=== PATIENT | female | born 1985 | race American Indian/Alaskan Native ===

== ENCOUNTER 2020-09-28 | Emergency (ER) | payer SELFPAY ==
[2020-09-28 02:57] LABS: Bacteria,Urine 2+ /HPF (Negative); Bilirubin,Urine NEG (Negative); Blood,Urine NEG (Negative); Color,Urine Yellow (Yellow); Mucus,Urine 2+ /HPF; Protein,Urine <15 mg/dL mg/dL (Negative)
[2020-09-28 02:59] LABS: HCG Qualitative,Urine Negative (Negative)
[2020-09-28] MEDS ORDERED: KETOROLAC 30 MG/1 ML INJ IM ONE (03:44)
--- NOTE | 2020-09-28 04:39 | Emergency Department Report ---
ED General Adult HPI - General Chief complaint: Abdominal Pain Stated complaint: LOWER BACK/ABD PAIN Time Seen by Provider: 09/28/20 03:43 Source: patient Mode of arrival: Ambulatory Limitations: No Limitations - History of Present Illness Initial comments: The patient was evaluated in the emergency department for symptoms described in the history of present illness. He/she was evaluated in the context of the global COVID-19 pandemic, which necessitated consideration that the patient might be at risk for infection with the virus that causes COVID-19. Institutional protocols and algorithms that pertain to the evaluation of patients at risk for COVID-19 are in a state of rapid change based on information released by regulatory bodies including the CDC and federal and state organizations. These policies and algorithms were followed during the patient's care in the emergency department. Please note that these policies, procedures and recommendations changed on a rapid basis. 35-year-old -[place] female presents to the emergency room for lower back pain and lower abdominal pain x1 day. Patient denies any nausea or vomiting. She denies any vaginal discharge or bleeding. She denies any dysuria. She states that the back pain radiates down her right leg. What makes it worse is when she is tries to get up or get sit down. Patient states nothing makes her abdomen feel better. She states she is even taken a 5 mg oxycodone about 930 and still having pain. She denies any fever or chills. Patient has a past medical history of vitiligo and Graves' disease. Location: back Severity scale (0 -10): 8 Quality: aching, sharp Consistency: intermittent Improves with: immobilization Worsens with: movement Associated Symptoms: denies: cough, diaphoresis, fever/chills, loss of appetite, shortness of breath - Related Data Previous Rx's Medication Instructions Recorded Last Taken Type Diclofenac Potassium 50 mg PO BID PRN #20 tablet 09/28/20 Unknown Rx Nitrofurantoin Baraga/M-Cryst 100 mg PO Q12HR 7 Days #14 capsule 09/28/20 Unknown Rx [Macrobid CAP] Allergies Allergy/AdvReac Type Severity Reaction Status Date / Time No Known Allergies Allergy Unverified 09/28/20 02:35 ED Review of Systems ROS: Stated complaint: LOWER BACK/ABD PAIN Other details as noted in HPI Comment: All other systems reviewed and negative ED Past Medical Hx - Past Medical History Previous Medical History?: Yes Additional medical history: Graves Disease - Surgical History Past Surgical History?: Yes Hx Appendectomy: Yes Additional Surgical History: - Social History Smoking Status: Never Smoker Substance Use Type: None - Medications Home Medications: Home Medications Medication Instructions Recorded Confirmed Last Taken Type Diclofenac Potassium 50 mg PO BID PRN #20 tablet 09/28/20 Unknown Rx Nitrofurantoin Bar[place]/M-Cryst 100 mg PO Q12HR 7 Days #14 capsule 09/28/20 Unknown Rx [Macrobid CAP] ED Physical Exam - General Limitations: No Limitations General appearance: alert, in distress - Head Head exam: Present: atraumatic, normocephalic - Eye Eye exam: Present: normal appearance - ENT ENT exam: Present: mucous membranes moist - Neck Neck exam: Present: normal inspection, full ROM - Respiratory Respiratory exam: Present: normal lung sounds bilaterally. Absent: chest wall tenderness, accessory muscle use - Cardiovascular Cardiovascular Exam: Present: regular rate, normal rhythm. Absent: systolic murmur, diastolic murmur, rubs, gallop - GI/Abdominal GI/Abdominal exam: Present: soft, tenderness (Suprapubic). Absent: distended - Extremities Exam Extremities exam: Present: normal inspection, full ROM - Back Exam Back exam: Present: tenderness - Expanded Back Exam Expanded Back exam: Sciatic Notch Tenderness: Right, Positive Straight Leg Raise: Right - Neurological Exam Neurological exam: Present: alert, oriented X3 - Psychiatric Psychiatric exam: Present: normal affect, normal mood - Skin Skin exam: Present: warm, dry, intact, normal color. Absent: rash ED Course Vital Signs 09/28/20 02:14 Temperature 97.8 F Pulse Rate 81 Respiratory 16 Rate Blood Pressure 124/87 O2 Sat by Pulse 97 Oximetry ED Medical Decision Making - Medical Decision Making 35-year-old -[place] female presents to the emergency room for lower back pain and lower abdominal pain x1 day. Patient denies any nausea or vomiting. She denies any vaginal discharge or bleeding. She denies any dysuria. She states that the back pain radiates down her right leg. What makes it worse is when she is tries to get up or get sit down. Patient states nothing makes her abdomen feel better. She states she is even taken a 5 mg oxycodone about 930 and still having pain. She denies any fever or chills. Patient has a past medical history of vitiligo and Graves' disease. Urinalysis shows positive for nitrates and mild WBC elevation. Back pain will give a Toradol injection. Will discharge patient home on Macrobid and diclofenac's for pain. Instructed patient to increase her water intake and follow-up with her primary care provider. Critical care attestation.: If time is entered above; I have spent that time in minutes in the direct care of this critically ill patient, excluding procedure time. ED Disposition Clinical Impression: Back pain with right-sided radiculopathy UTI (urinary tract infection) Qualifiers: Urinary tract infection type: site unspecified Hematuria presence: without he maturia Qualified Code(s): N39.0 - Urinary tract infection, site not specified Disposition: TO HOME OR SELFCARE Is pt being admited?: No Does the pt Need Aspirin: No Condition: Stable Instructions: Abdominal Pain (ED), Urinary Tract Infection, Adult, [id number], Radicular Pain Additional Instructions: Complete antibiotics as prescribed take pain medication as needed increase your water intake by 2 to 3 L daily. Follow-up with your primary care provider. Prescriptions: Diclofenac Potassium 50 mg PO BID PRN #20 tablet PRN Reason: Pain , Severe (7-10) Nitrofurantoin Baraga/M-Cryst [Macrobid CAP] 100 mg PO Q12HR 7 Days #14 capsule Referrals: KAROL FELDMAN MD [Primary Care Provider] - 3-5 Days Forms: Work/School Release Form(ED)
[2020-09-28 05:22] VITALS: BP 124/81
== END 2020-09-28 04:58 | disposition home or self-care (01) ==
LOC: ED
DX: M54.16 Radiculopathy, lumbar region (principal); N39.0 Urinary tract infection, site not specified; Z98.890 Other specified postprocedural states; Z79.899 Other long term (current) drug therapy
CPT/HCPCS: 81001; 81025; 96372; 99283; J1885